=== PATIENT | female | born 1970 | race African-American/Black ===

== ENCOUNTER 2017-04-05 10:34 | Emergency (ER) | payer MEDICAID ==
[~2017-04-05] VITALS: Ht 172.7 cm; Wt 67.6 kg
[2017-04-05 10:34] VITALS: BP 139/78
[2017-04-05] MEDS ORDERED: ALBUTEROL FS 2.5 MG/3 ML VIAL.NEB ONE (10:49)
[2017-04-05] MEDS ORDERED: IPRATROPIUM NEB FS 0.5 MG/2.5 ML AMPUL.NEB ONE (10:49)
[2017-04-05] MEDS ORDERED: ALBUTEROL FS 2.5 MG/3 ML VIAL.NEB NEB ONE (11:00)
[2017-04-05] MEDS ORDERED: IPRATROPIUM NEB FS 0.5 MG/2.5 ML AMPUL.NEB NEB ONE (11:00)
== END 2017-04-05 11:28 | disposition home or self-care (01) ==
LOC: ER 10:38
DX: R05 Cough (principal); Z88.2 Allergy status to sulfonamides; Z88.8 Allergy status to other drugs, medicaments and biological substances
CPT/HCPCS: 71045; 94640; 99283; A4606; Z7610

== ENCOUNTER 2017-09-25 12:24 | Emergency (ER) | payer MEDICAID, OTHER ==
[~2017-09-25] VITALS: Ht 170.2 cm; Wt 65.8 kg
[2017-09-25 12:24] VITALS: BP 134/88
[2017-09-25] MEDS ORDERED: HYDROCODONE/APAP 5/325MG 1 EACH TABLET PO ONE (13:00)
[2017-09-25] MEDS ORDERED: LIDOCAINE 1% INJ 50 ML MDV IJ STA (13:00)
[2017-09-25] MEDS ORDERED: LIDOCAINE 1% INJ 50 ML MDV IJ ONE (13:01)
[2017-09-25] MEDS ORDERED: HYDROCODONE/APAP 5/325MG 1 EACH TABLET ONE (13:17)
== END 2017-09-25 13:53 | disposition home or self-care (01) ==
LOC: ER 12:25
DX: L03.011 Cellulitis of right finger (principal); Z98.86 Personal history of breast implant removal; Z88.2 Allergy status to sulfonamides; Z88.1 Allergy status to other antibiotic agents
CPT/HCPCS: 10160; 99284; A4606; A6403; J3490; Z7610

== ENCOUNTER 2018-04-28 20:46 | Emergency (ER) | payer OTHER ==
[~2018-04-28] VITALS: Ht 172.7 cm; Wt 68.5 kg
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
--- NOTE | 2018-04-28 21:48 | NUR ---
PEACE PEREZ IN PROGRESS AT THE BEDSIDE.
--- NOTE | 2018-04-28 21:59 | NUR ---
Julieth THORNTON PA-C IS AT THE BEDSIDE REASSESSING THE PT.
[2018-04-28] MEDS ORDERED: ONDANSETRON 4 MG TAB.RAPDIS PO ONE (22:00)
[2018-04-28] MEDS ORDERED: ONDANSETRON 4 MG TAB.RAPDIS ONE (22:02)
[2018-04-28] MEDS ORDERED: HYDROCODONE/APAP 5/325MG 1 EACH TABLET ONE (22:19)
[2018-04-28] MEDS ORDERED: HYDROCODONE/APAP 5/325MG 1 EACH TABLET PO ONE (22:30)
--- NOTE | 2018-04-28 22:30 | NUR ---
PT REC'D MEDICATION ORDERED. Patient discharged to home in stable condition. Written and verbal after care instructions given. Patient verbalizes understanding of instruction. PT'S IS DRIVING PT HOME. VSS. NAD NOTED.
[2018-04-28 22:46] VITALS: BP 131/89
== END 2018-04-28 22:47 | disposition home or self-care (01) ==
LOC: ER 20:48
DX: H61.23 Impacted cerumen, bilateral (principal); Z41.1 Encounter for cosmetic surgery; Z88.2 Allergy status to sulfonamides; Z88.1 Allergy status to other antibiotic agents
CPT/HCPCS: 69209; 99283; A4606; Q0162

== ENCOUNTER 2018-07-20 17:13 | Emergency (ER) | payer MEDICAID, OTHER ==
[~2018-07-20] VITALS: Ht 172.7 cm; Wt 68.0 kg
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
[2018-07-20] MEDS ORDERED: ONDANSETRON HCL/PF 4 MG/2 ML VIAL IVP ONE (18:30)
[2018-07-20] MEDS ORDERED: MORPHINE SULFATE INJ 2 MG/ML DISP.SYRIN IV ONE (18:30)
[2018-07-20] MEDS ORDERED: IV NS 0.9% 1,000 ML BAG IV ONE (18:30)
[2018-07-20] MEDS ORDERED: MORPHINE SULFATE INJ 4 MG/ML DISP.SYRIN ONE (18:48)
[2018-07-20] MEDS ORDERED: ONDANSETRON HCL/PF 4 MG/2 ML VIAL ONE (18:48)
[2018-07-20 18:54] LABS: BASOPHILS # (AUTO) 0.1 /CMM (0.0-0.2); BASOPHILS % (AUTO) 1.1 % (0.0-2.0); EOSINOPHILS % (AUTO) 5.5 % (0.0-6.0); HEMATOCRIT 37 % (33-45); HEMOGLOBIN 12.4 g/dL (11.5-14.8); LYMPHOCYTES % (AUTO) 46.6 % (20.0-44.0); MEAN CORPUSCULAR HGB CONC 33 g/dl (31.0-36.0); MEAN CORPUSCULAR VOLUME 91 fL (82-100); MONOCYTES % (AUTO) 9.1 % (2.0-12.0); NEUTROPHILS % (AUTO) 37.7 % (43.0-81.0); PLATELET COUNT (AUTO) 340 /CMM (150-450); RED BLOOD CELL COUNT(AUTO) 4.08 MIL/uL (4.0-5.2); WHITE BLOOD COUNT (AUTO) 10.6 K/uL (4.3-11.0)
--- NOTE | 2018-07-20 19:00 | NUR ---
PATIENT GIVEN A URINE SAMPLE CUP, PER PATIENT, SHE WILL TRY LATER.
[2018-07-20 19:01] LABS: CALCIUM, SERUM 9.6 mg/dL (8.5-10.1); CREATININE 0.8 mg/dL (0.6-1.3)
[2018-07-20] MEDS ORDERED: CT SWABBABLE VALVE TRANS SET 1 EA INFUS.SET MC ONE (19:08)
[2018-07-20] MEDS ORDERED: IOHEXOL-300 100 ML VIAL IV ONE (19:08)
[2018-07-20] MEDS ORDERED: IV NS 0.9% 250 ML IV ONE (19:09)
--- NOTE | 2018-07-20 19:14 | NUR ---
REPORT REC'D FROM CADENCE BRAN
--- NOTE | 2018-07-20 19:14 | NUR ---
PT LEFT FOR CT VIA [facility]
--- NOTE | 2018-07-20 20:01 | NUR ---
IV removed. Catheter intact and site benign. Pressure and 4x4 applied to site. No bleeding noted. Patient discharged to home in stable condition. Written and verbal after care instructions given. Patient verbalizes understanding of instruction AND RX. PT AMBULATED OUT TO THE LOBBY WITH A SLOW STEADY GAIT TO WAIT FOR UBER TO TAKE HER HOME. VSS. NAD NOTED.
[2018-07-20 20:04] VITALS: BP 125/84
== END 2018-07-20 20:04 | disposition home or self-care (01) ==
LOC: ER 17:13
DX: S39.81XA Other specified injuries of abdomen, initial encounter (principal); Z98.890 Other specified postprocedural states; Z90.711 Acquired absence of uterus with remaining cervical stump; Z88.2 Allergy status to sulfonamides; Z88.1 Allergy status to other antibiotic agents; V49.59XA Passenger injured in collision with other motor vehicles in traffic accident, initial encounter; Y93.89 Activity, other specified; Y92.413 State road as the place of occurrence of the external cause; Y99.8 Other external cause status
CPT/HCPCS: 36415; 74177; 80048; 85025; 96374; 96375; 99284; J2270; J2405; J7030; J7050; Q9967